=== PATIENT | male | born 1985 | race Caucasian/White ===

== ENCOUNTER 2024-02-15 10:10 | Emergency (ER) | payer OTHER, SELFPAY ==
[2024-02-15] VITALS (8 sets, daily range): BP systolic 136–157; BP diastolic 90–96; PULSE 71–76; RESP 18–24; TEMP 36.8; O2SAT 94–99; BMI 32.5
--- NOTE | 2024-02-15 10:17 | DI.RAD.S_ITS ---
PROCEDURE: XR CHEST 1V INDICATIONS: chest pain TECHNIQUE: One view of the chest was acquired. COMPARISON: None. FINDINGS: Surgical changes and devices: None. Lungs and pleura: Lungs are clear. No pleural effusions or pneumothorax. Mediastinum: Mediastinal contours appear normal. Heart size is normal. Bones and chest wall: No suspicious bony lesions. Overlying soft tissues appear unremarkable. IMPRESSION: No acute cardiopulmonary abnormality is seen. Dictated by: John Howard M.D. on 02/15/2024 at 10:38 Approved by: John Howard M.D. on 02/15/2024 at 10:39
--- NOTE | 2024-02-15 10:22 | ED_ITS ---
HPI - Chest Pain General Chief Complaint: Chest Pain Stated Complaint: heart issues, sent by provider Time Seen by Provider: 02/15/24 10:22 Source: patient Mode of arrival: Ambulatory History of Present Illness HPI narrative: This is a 30-year-old male with longstanding history of substernal chest tightness, shortness of breath and occasionally racing heart rate. Patient notes he does sometimes have quite a bit of anxiety. He states he started having similar symptoms about 2 years ago was seen in the emergency department at [place]. Since then has had symptoms daily sometimes throughout the day seems to be worse with exertion, he has had a dry cough occasionally some yellow productive sputum but mostly without. Denies fevers chills or cold congestion symptoms otherwise. He does note he quit smoking tobacco about a year and a half ago and his breathing has not been quite the same since then. Denies any diaphoresis. No nausea or vomiting. No swelling in his extremities. No issues with bowel movements or urination. Patient states he has not on any prescription medications. Prior surgery for clavicle fracture and clean out of infection on his shoulder. Patient states he has adverse reactions to Benadryl and morphine. Quit smoking a year and a half ago, quit alcohol around the same time. No known cardiac, pulmonary embolic family history mom has Oscar's. Patient recently did travel back from [place] in the last 2 or 3 weeks. Related Data Allergies Allergy/AdvReac Type Severity Reaction Status Date / Time No Known Drug Allergies Allergy Verified 02/15/24 10:19 Review of Systems Review of Systems ROS Unobtainable: All systems reviewed & are unremarkable except as noted in HPI and below Patient History Social History Smoking Status: Never smoker Smoking Status: Never smoker Substance Use Type: does not use Exam Narrative Exam Narrative: GENERAL: Alert and oriented x three, well-appearing male in mild distress. HEENT: Head normocephalic, atraumatic, EOMI, pupils reactive, face symmetric, moist mucous membranes NECK: Supple, full range of motion CARDIOVASCULAR: Regular rate and rhythm without murmurs, rubs or gallops. No JVD. No edema bilateral lower extremities. No reproducible chest pain on exam. RESPIRATORY: Breath sounds equal bilaterally, no wheezes rales or rhonchi. No tachypnea. No accessory muscle use. ABDOMEN: Soft, nontender. Normoactive bowel sounds all 4 quadrants. No guarding or rebound, rigidity, no mass : No CVA tenderness EXTREMITIES: Normal range of motion, no clubbing or edema. Neurovascularly intact NEUROLOGICAL: Cranial nerves II through XII grossly intact. Moving all extremities SKIN: Warm, dry, no petechiae, no rashes or lesions. Initial Vital Signs Initial Vital Signs: Vital Signs Pulse Rate 76 02/15/24 10:15 Blood Pressure 157/94 H 02/15/24 10:15 Pulse Oximetry 99 02/15/24 10:15 Course Orders Ordered: ED Orders 02/15/24 10:17 XR chest 1V Stat EKG-12 Lead Stat 02/15/24 10:29 Complete Blood Count AUTO DIFF Stat Comprehensive Metabolic Panel Stat D Dimer Stat Lipase Stat Magnesium Stat PTT Partial Thromboplastin Isaias Stat Prothrombin Time INR Stat Troponin & CK Cardiac Panel Stat 02/15/24 12:32 Trop I [Troponin I] Stat Discontinued Medications Aspirin (Aspirin 81 Mg Chew Tab) 324 mg PO NOW ONE Stop: 02/15/24 10:18 Last Admin: 02/15/24 10:42 Dose: Not Given Documented By: MPO Vital Signs Vital signs: Vital Signs - 8 hr 02/15/24 11:30 02/15/24 11:30 02/15/24 12:00 Pulse Rate 75 75 Respiratory Rate 18 18 Blood Pressure 143/93 H Pulse Oximetry 94 95 02/15/24 12:00 02/15/24 12:30 02/15/24 12:30 Pulse Rate 71 Respiratory Rate 24 Blood Pressure 144/96 H 136/90 Pulse Oximetry 98 MDM - Chest Pain Lab Data 02/15/24 10:29 02/15/24 10:29 Labs: Lab Results 02/15/24 02/15/24 Range/Units 10:29 12:32 WBC 8.3 (4.5-11.0) X10^3/uL RBC 5.12 (4.5-5.9) X10^6/uL Hgb 14.2 (13.5-17.5) g/dL Hct 40.9 L (41-53) % MCV 80.0 (80-100) fL MCH 27.8 (26-34) PG MCHC 34.8 (30-36) % RDW 13.4 (11.6-14.8) % Plt Count 457 H (150-400) X10^3/uL Neut % (Auto) 60.1 (50-75) % Lymph % (Auto) 23.4 L (25-40) % Chester % (Auto) 8.6 (3-14) % Eos % (Auto) 6.9 H (2-4) % Baso % (Auto) 1.0 (0-2) % Neut # (Auto) 5000 (5899-8657) /uL Lymph # (Auto) 2000 (9435-6116) /uL Chester # (Auto) 700 (0-900) /uL Eos # (Auto) 600 H (0-450) /uL Baso # (Auto) 100 (0-100) /uL PT 13.3 H (9.4-12.5) SECONDS INR 1.2 (0.9-1.3) APTT 40 H (25.1-36.5) SECONDS D-Dimer < 215 (<500) ng/ml Sodium 140 (137-145) mmol/L Potassium 4.1 (3.4-5.1) mmol/L Chloride 106 (98-107) mmol/L Carbon Dioxide 30 (22-32) mmol/L BUN 17 (9-20) mg/dL Creatinine 0.80 (0.66-1.25) mg/dL Estimated GFR > 60 (>60) mL/min BUN/Creatinine Ratio 21.3 (6-22) Glucose 75 (70-100) mg/dL Calcium 9.7 (8.4-10.2) mg/dL Magnesium 2.1 (1.6-2.3) mg/dL Total Bilirubin 1.5 H (0.2-1.3) mg/dL AST 26 (17-59) IU/L ALT 24 (<50) IU/L Alkaline Phosphatase 74 (38-126) U/L Total Creatine Kinase 79 (55-170) U/L Troponin I < 0.012 < 0.012 (0.01-0.034) ng/mL Total Protein 8.3 H (6.3-8.2) g/dL Albumin 4.5 (3.5-5.0) g/dL Globulin 3.8 (1.7-4.1) g/dL Albumin/Globulin Ratio 1.2 (1.0-2.8) Lipase 50 (23-300) U/L Imaging Data Chest x-ray: Radiologist's Impression: [address] [address] XRay Report Signed Patient: Manuel King MR#: [id number] : 1985 Acct:[id number] Age/Sex: 38 / M Date of Service: 02/15/24 Loc: ED Accession Number: [id number] Procedure: XR chest 1V Ordering Provider: Zuleyma Dubon D.O. PROCEDURE: XR CHEST 1V INDICATIONS: chest pain TECHNIQUE: One view of the chest was acquired. COMPARISON: None. FINDINGS: Surgical changes and devices: None. Lungs and pleura: Lungs are clear. No pleural effusions or pneumothorax. Mediastinum: Mediastinal contours appear normal. Heart size is normal. Bones and chest wall: No suspicious bony lesions. Overlying soft tissues appear unremarkable. IMPRESSION: No acute cardiopulmonary abnormality is seen. Dictated by: John Howard M.D. on 02/15/2024 at 10:38 Approved by: John Howard M.D. on 02/15/2024 at 10:39 ECG Data Attestation: I personally reviewed and interpreted this ECG as follows: Prior ECG tracings: not available for review Interpretation: Sinus rhythm rate of 68 OK 156 QRS of [address] QTC [address] No acute [address] elevation or depression. No priors for available. MDM Narrative Medical decision making narrative: 38-year-old male comes in with complaint of substernal chest tightness, shortness of breath, cough for the past 2 years. Happens daily, patient states it does seem to be worse with exertion. He states it seems worse lately. He did quit smoking and using any alcohol about a year and a half ago. He otherwise is healthy without cardiac risk factors. No family history. He has had long distance travel back from [place] in the past several weeks so D-dimer was added on top of cardiac labs, EKG showed no acute changes chest x-ray is negative. Labs white count 8.3 hemoglobin of 14 platelets of 457, INR is 1.2, D-dimer is less than 215, sodium is 140 potassium is 4 1, Mag 2.1 normal renal function electrolytes bilirubin is 1.5 but with normal AST ALT alk-phos, lipase of 50, troponin is less than 0.012. Troponin was repeated and is negative. EKG shows sinus rhythm without any acute change Chest x-ray is negative Discharge Plan Departure Patient Disposition: Home Clinical Impression: Chest pain Activity Restrictions/Additional Instructions: Follow up with primary care, please call for an appointment. I hope you feel improved. Your labs showed a slightly elevated bilirubin, your other liver enzymes were normal. Please return for new or concerning changes, new or worsening chest pain, shortness of breath, passing out, new swelling of your extremities, persistent vomiting or other new or concerning changes. Stand Alone Forms: Patient Portal/API
[2024-02-15 10:37] LABS: Add Manual Diff / Slide Review NO; Basophils Absolute Auto 100 /uL (0-100); Eosinophils Absolute Auto 600 /uL (0-450); Eosinophils Percent Auto 6.9 % (2-4); Hematocrit 40.9 % (41-53); Hemoglobin 14.2 g/dL (13.5-17.5); Lymphocytes Absolute Auto 2000 /uL (1100-4500); Lymphocytes Percent Auto 23.4 % (25-40); Mean Corpuscular HGB Conc 34.8 % (30-36); Mean Corpuscular Hemoglobin 27.8 PG (26-34); Monocytes Absolute Auto 700 /uL (0-900); Monocytes Percent Auto 8.6 % (3-14); Neutrophils Absolute Auto 5000 /uL (1500-7000); Neutrophils Percent Auto 60.1 % (50-75); Platelet Count 457 X10^3/uL (150-400); Red Blood Cell Count 5.12 X10^6/uL (4.5-5.9); Red Cell Distribution Width 13.4 % (11.6-14.8); White Blood Cell Count 8.3 X10^3/uL (4.5-11.0)
[2024-02-15 10:46] LABS: INR 1.2 (0.9-1.3); Prothrombin Time 13.3 SECONDS (9.4-12.5)
[2024-02-15 10:48] LABS: PTT Partial Thromboplastin Tim 40 SECONDS (25.1-36.5)
[2024-02-15 10:52] LABS: Alanine Aminotransferase 24 IU/L (<50); Albumin 4.5 g/dL (3.5-5.0); Albumin Globulin Ratio 1.2 (1.0-2.8); Alkaline Phosphatase 74 U/L (38-126); Aspartate Aminotransferase 26 IU/L (17-59); BUN Creatinine Ratio 21.3 (6-22); Bilirubin Total 1.5 mg/dL (0.2-1.3); Blood Urea Nitrogen 17 mg/dL (9-20); Calcium 9.7 mg/dL (8.4-10.2); Carbon Dioxide 30 mmol/L (22-32); Chloride 106 mmol/L (98-107); Creatine Kinase 79 U/L (55-170); Estimated Glomerular Filt Rate > 60 mL/min (>60); Globulin 3.8 g/dL (1.7-4.1); Glucose 75 mg/dL (70-100); HEMOLYSIS < 15 (0-50); Lipase 50 U/L (23-300); Magnesium 2.1 mg/dL (1.6-2.3); Potassium 4.1 mmol/L (3.4-5.1); Sodium 140 mmol/L (137-145); Total Protein 8.3 g/dL (6.3-8.2)
[2024-02-15 10:54] LABS: D Dimer < 215 ng/ml (<500)
[2024-02-15 11:03] LABS: Troponin I < 0.012 ng/mL (0.01-0.034)
[2024-02-15 13:12] LABS: Troponin I < 0.012 ng/mL (0.01-0.034)
== END 2024-02-15 13:27 | disposition home or self-care (01) ==
PROVIDERS: Emergency Provider Emergency Medicine
DX: R07.9 Chest pain, unspecified (principal); R06.02 Shortness of breath; R05.9 Cough, unspecified
CPT/HCPCS: 36415; 71045; 80053; 82550; 83690; 83735; 84484; 85025; 85379; 85610; 85730; 93005; 99283; 99284

== ENCOUNTER → 2024-03-26 08:18 | Outpatient (CLI) | payer OTHER, SELFPAY | PROVIDERS: Referring Provider Internal Medicine; Visit Provider Internal Medicine | DX: R06.00 Dyspnea, unspecified (principal); F17.210 Nicotine dependence, cigarettes, uncomplicated; J98.8 Other specified respiratory disorders | CPT/HCPCS: 94060; 94726; 94729 ==